=== PATIENT | male | born 2000 | race Caucasian/White ===

== ENCOUNTER 2025-01-24 16:40 | Emergency (ER) | payer OTHER ==
[~2025-01-24] VITALS: Ht 180.3 cm; Wt 58.1 kg
[2025-01-24] MEDS ORDERED: HYDROCODONE/APAP 5/325MG TABLET ONE (17:28)
[2025-01-24] MEDS ORDERED: IBUPROFEN 400 MG TABLET ONE ×2 (17:29)
[2025-01-24] MEDS: HYDROCODONE/APAP 5/325MG TABLET PO ONE (17:35)
[2025-01-24] MEDS: IBUPROFEN 400 MG TABLET PO ONE (17:35)
[2025-01-24] MEDS ORDERED: HYDR-3980 PO (18:26)
[2025-01-24 18:52] VITALS: BP 130/98; TEMP 98.4; O2SAT 98
== END 2025-01-24 18:52 | disposition home or self-care (01) ==
LOC: ER 16:46
DX: S42.001A Fracture of unspecified part of right clavicle, initial encounter for closed fracture (principal); S52.614A Nondisplaced fracture of right ulna styloid process, initial encounter for closed fracture; J45.909 Unspecified asthma, uncomplicated; R07.9 Chest pain, unspecified; Z88.0 Allergy status to penicillin; Z88.2 Allergy status to sulfonamides; V19.9XXA Pedal cyclist (driver) (passenger) injured in unspecified traffic accident, initial encounter; Y93.55 Activity, bike riding; Y92.488 Other paved roadways as the place of occurrence of the external cause; Y99.8 Other external cause status
CPT/HCPCS: 71045-TC; 73000-TC; 73110